=== PATIENT | female | born 1980 | race Two or more races ===

== ENCOUNTER 2022-01-30 01:31 | Emergency (ER) | payer OTHER ==
[~2022-01-30] VITALS: Ht 167.6 cm; Wt 64.4 kg
[2022-01-30] MEDS ORDERED: TAMS0.4C PO (05:14)
[2022-01-30] MEDS ORDERED: KETO10TA2 PO (05:14)
[2022-01-30] MEDS ORDERED: CIPRO500 MG PO (05:14)
== END 2022-01-30 05:30 | disposition home or self-care (01) ==
LOC: ER 01:31
DX: R10.31 Right lower quadrant pain (principal); N20.0 Calculus of kidney

== ENCOUNTER 2024-01-15 10:43 | Outpatient (CLI) | payer OTHER ==
[~2024-01-15 10:43] MED LIST: CIPRO500 MG PO; KETO10TA2 PO; TAMS0.4C PO
== END 2024-01-15 10:51 | disposition home or self-care (01) ==
LOC: RAD 10:43
PROVIDERS: ATTEND General Practice
DX: N20.0 Calculus of kidney (principal); R10.2 Pelvic and perineal pain